=== PATIENT | female | born 1985 | race African-American/Black ===

== ENCOUNTER 2018-03-01 10:00 | Emergency (ER) | payer BC ==
[~2018-03-01] VITALS: Ht 180.3 cm; Wt 131.1 kg
[2018-03-01] MEDS ORDERED: LISINOPRIL20 MG PO (10:06)
[2018-03-01] MEDS ORDERED: NORCO 5-325 TA1 EACH PO (10:16)
[2018-03-01] MEDS ORDERED: PREDNISONE 20 M20 MG PO (10:16)
[2018-03-01 10:48] VITALS: BP 168/108
== END 2018-03-01 10:45 | disposition home or self-care (01) ==
LOC: ER 10:00
DX: M54.40 Lumbago with sciatica, unspecified side (principal); E66.9 Obesity, unspecified; R20.0 Anesthesia of skin; I10 Essential (primary) hypertension